=== PATIENT | female | born 2005 | race Caucasian/White ===

== ENCOUNTER 2024-02-28 19:52 | Emergency (ER) | payer OTHER ==
[~2024-02-28] VITALS: Ht 165.1 cm; Wt 56.7 kg
[2024-02-28 20:15] VITALS: BP_SYST 132; PULSE 96; RESP 20; TEMP 98.6; O2SAT 98
== END 2024-02-28 22:00 | disposition left against medical advice (07) ==
LOC: SED 19:52
DX: R11.10 Vomiting, unspecified (principal); Z53.21 Procedure and treatment not carried out due to patient leaving prior to being seen by health care provider